=== PATIENT | female | born 1960 | race Caucasian/White ===

== ENCOUNTER 2016-11-07 08:08 | Day surgery (SDC) | payer BC, OTHER ==
[2016-11-07] MEDS ORDERED: Lactated Ringers 1,000 ML IV SCH (08:15)
[2016-11-07] MEDS ORDERED: Propofol 200 MG/20 ML SDV IV ONE (10:00)
[2016-11-07] MEDS ORDERED: Lidocaine 2% 100 MG/5 ML Syringe IVPUSH ONE (10:00)
[2016-11-07] MEDS ORDERED: Midazolam 1 MG/ML 2 ML SDV IV ONE (10:00)
--- NOTE | 2016-11-07 10:22 | PCM.OPNOTE ---
- General Post-Op/Procedure Note Date of Surgery/Procedure: 11/07/16 Operative Procedure(s): egd with bx Findings: gastritis esophagitis Post-Op Diagnosis: gastritis. esophagitis Anesthesia Technique: MAC Primary Surgeon: Terrance Lagos Anesthesia Provider: Indra Walsh Pathology: stomach and distal esophagus Complications: None Condition: Good Free Text/Narrative:: see dictation
--- NOTE | 2016-11-07 10:36 | OR ---
DATE OF OPERATION: 11/07/2016 SURGEON: Terrance Lagos MD PROCEDURE PERFORMED: Esophagogastroduodenoscopy with cold forceps biopsy. PREOPERATIVE DIAGNOSIS: Dysphagia with symptomatic gastroesophageal reflux disease. POSTOPERATIVE DIAGNOSIS: Esophagitis and gastritis. INDICATIONS FOR PROCEDURE: This is a 56-year-old white female, who was referred with a history of gastroesophageal reflux disease, as well as some dysphagia. She was offered and accepted an EGD. DESCRIPTION OF PROCEDURE: After an excellent IV sedation was administered, the bite block was inserted. The flexible endoscope was passed without difficulty down the patient's esophagus into the stomach. The stomach was insufflated. The scope was passed through the pylorus to the second portion of duodenum and slowly withdrawn. The following findings were noted. Duodenum was unremarkable. Stomach demonstrated some diffuse gastritis. Multiple biopsies were taken. GE junction at 40 cm with some esophagitis proximal to that and multiple biopsies were taken. The remainder of the esophageal exam was unremarkable. The stomach was deflated, scope was removed. The patient tolerated the procedure well, and was taken to recovery room in good condition. /[id number] /MODL
[2016-11-07 13:05] VITALS: BP 93/66
== END 2016-11-07 11:17 | disposition home or self-care (01) ==
LOC: FB.SDS 08:08
PROVIDERS: ATTEND Surgery
PROC: 0DB48ZX Excision of Esophagogastric Junction, Via Natural or Artificial Opening Endoscopic, Diagnostic (ICD-10-PCS; principal; 2016-11-07)
PROC: 0DB68ZX Excision of Stomach, Via Natural or Artificial Opening Endoscopic, Diagnostic (ICD-10-PCS; 2016-11-07)
DX: K20.8 Other esophagitis (principal); R13.10 Dysphagia, unspecified; K31.89 Other diseases of stomach and duodenum
CPT/HCPCS: 43239; 88305; 88342; J2250; J2704; J7120

== ENCOUNTER 2019-03-18 07:53 | Day surgery (SDC) | payer OTHER ==
[2019-03-18] MEDS ORDERED: Propofol 200 MG/20 ML SDV IV ONE (07:54)
[2019-03-18] MEDS ORDERED: Lidocaine 2% 5 ML SDV INJECT ONE (07:54)
[2019-03-18] MEDS ORDERED: Lactated Ringers 1,000 ML IV SCH (08:00)
[2019-03-18] MEDS ORDERED: Sodium Chloride 0.9% 10 ML Syringe FLUSH PRN (08:00)
--- NOTE | 2019-03-18 09:53 | PCM.OPNOTE ---
- General Post-Op/Procedure Note Date of Surgery/Procedure: 03/18/19 Operative Procedure(s): egd with bx. c scope Findings: gastroduodenitis normal colon Pre Op Diagnosis: hx of colon polyps. epigastric discomfort Post-Op Diagnosis: gastroduodenitis. normal colon Anesthesia Technique: MAC Primary Surgeon: Terrance Lagos Anesthesia Provider: Valente Greene Pathology: stomach and duodenum Complications: None Condition: Good Free Text/Narrative:: see dictation
[2019-03-18 10:21] VITALS: BP 107/59; PULSE 71
--- NOTE | 2019-03-18 14:05 | OR ---
DATE OF OPERATION: 03/18/2019 SURGEON: Terrance Lagos MD PROCEDURE PERFORMED: Esophagogastroduodenoscopy with cold forceps biopsy and colonoscopy. PREOPERATIVE DIAGNOSIS: Epigastric discomfort and need for screening C-scope. POSTOPERATIVE DIAGNOSIS: Gastroduodenitis and normal colonoscopy. INDICATIONS FOR PROCEDURE: This is a 59-year-old white woman who presents with the following complaints. Does have a personal history of colon polyps which necessitated the early colonoscopy at the 5-year point and she has noted some epigastric discomfort as well. She was offered and accepted both the upper and lower endoscopy. DESCRIPTION OF PROCEDURE: After an excellent IV sedation was administered, bite block was inserted. Flexible endoscope was passed without difficulty down the patient's esophagus into the stomach. Stomach was insufflated. Scope passed through the pylorus, second portion duodenum, slowly withdrawn, following findings were noted: In the stomach and in the first portion duodenum, mild irritation was noted. Biopsies were taken of both these structures, submitted in separate containers. The esophagus was unremarkable. The stomach was deflated, scope was removed. Our attention was then turned to the colon. Digital rectal exam was performed. No marked abnormality was noted. Flexible colonoscope was inserted and advanced to the cecum. Prep was excellent. The following findings were noted: Ascending colon, unremarkable. Transverse colon, unremarkable. Descending colon, unremarkable. Sigmoid and rectum, unremarkable. Colon was deflated. Scope was removed. Patient tolerated the procedure well, was taken to recovery room in good condition. Results will be sent by letter. /[id number] MAHESH/WILTON
== END 2019-03-18 10:57 | disposition home or self-care (01) ==
LOC: FB.SDS 07:53
PROVIDERS: ATTEND Surgery
DX: Z12.11 Encounter for screening for malignant neoplasm of colon (principal); K31.89 Other diseases of stomach and duodenum; K21.9 Gastro-esophageal reflux disease without esophagitis; F32.9 Major depressive disorder, single episode, unspecified; F41.1 Generalized anxiety disorder; Z88.8 Allergy status to other drugs, medicaments and biological substances; Z86.010 Personal history of colon polyps; Z79.899 Other long term (current) drug therapy
CPT/HCPCS: 43239; 45378; 88305; 88342; J2001; J2704; J7120